=== PATIENT | male | born 1950 | race Caucasian/White ===

== ENCOUNTER 2019-02-11 21:24 | Inpatient (IN) | payer MEDICARE, MEDICAID ==
[~2019-02-11] VITALS: Ht 170.2 cm; Wt 71.7 kg
[2019-02-11] MEDS ORDERED: IPRATROPIUM BROMIDE (0.02%) 0.5MG/2.5ML NEB HHN STA (21:32)
[2019-02-11] MEDS ORDERED: ALBUTEROL (0.083%) 2.5MG/3ML NEB HHN STA (21:32)
[2019-02-11] MEDS ORDERED: METHYLPREDNISOLONE SOD SUCC 125 MG/2 ML VIAL IV STA (21:32)
[2019-02-11] MEDS ORDERED: MAGNESIUM 2 G PREMIX 50 ML IV STA (21:32)
[2019-02-11 21:59] LABS: BASOPHILS % 0.6 % (0.0-2.0); EOSINOPHILS % 6.5 % (0.0-5.0); HEMATOCRIT. 50.3 % (42.0-52.0); HEMOGLOBIN. 16.9 g/dL (14.0-18.0); LYMPHOCYTES % 24.2 % (20.0-50.0); MEAN CORPUSCULAR HEMOGLOBIN 32.9 pg (28.0-32.0); MEAN PLATELET VOLUME 9.1 fl (7.4-10.4); MONOCYTES % 14.4 % (2.0-8.0); NEUTROPHILS % 54.3 % (40.0-76.0); PLATELET 159 x1000/uL (130-400); RED BLOOD CELL COUNT 5.13 mill/uL (4.7-6.1); RED CELL DISTRIBUTION WIDTH 13.7 % (11.6-14.6)
[2019-02-11 22:04] LABS: CHLORIDE 104 mEq/L (98-107)
[2019-02-11 22:05] LABS: INR 1.1; PROTHROMBIN TIME 10.9 sec (9.6-11.0)
[2019-02-11] MEDS ORDERED: GUAIFENESIN 200MG/10ML SUGAR FREE UDC PO PRN (23:15)
[2019-02-11] MEDS ORDERED: ACETAMINOPHEN 325MG TABLET PO PRN (23:15)
[2019-02-11] MEDS ORDERED: DIPHENHYDRAMINE 50MG/ML VIAL IV PRN (23:15)
[2019-02-11] MEDS ORDERED: HYDROCODONE/ACETAMINOPHEN 10/325MG TABLET PO PRN (23:15)
[2019-02-11] MEDS ORDERED: NA PHOS,M-B/NA PHOS,DI-BA ENEMA 118ML PR PRN (23:15)
[2019-02-11] MEDS ORDERED: CLONIDINE 0.1MG TABLET PO PRN (23:15)
[2019-02-11] MEDS ORDERED: MORPHINE SULFATE 2 MG/ML CPJ (NOT FOR IM USE) IV PRN (23:15)
[2019-02-11] MEDS ORDERED: IPRATROPIUM/ALBUTEROL 0.5-3(2.5)MG/3ML NEB HHN PRN (23:15)
[2019-02-11] MEDS ORDERED: MAGNESIUM/ALUMINUM HYDROXIDE/SIMETHICONE 30ML UDC PO PRN (23:15)
[2019-02-11] MEDS ORDERED: ONDANSETRON HCL 4MG/2ML INJ IV PRN (23:15)
[2019-02-11] MEDS ORDERED: LORAZEPAM 2MG/ML CPJ IV PRN (23:15)
[2019-02-12] VITALS (11 sets, daily range): BP systolic 113–141; BP diastolic 60–92
[2019-02-12] MEDS ORDERED: METHYLPREDNISOLONE SOD SUCC 125 MG/2 ML VIAL IV SCH (06:00)
[2019-02-12] MEDS: SODIUM CHLORIDE 0.9% INJ 3ML FLUSH IVF SCH ×3 (06:09→22:00)
[2019-02-12 09:00] LABS: BASOPHILS % 0.1 % (0.0-2.0); EOSINOPHILS % 0.1 % (0.0-5.0); HEMATOCRIT. 47.2 % (42.0-52.0); HEMOGLOBIN. 16.2 g/dL (14.0-18.0); LYMPHOCYTES % 12.5 % (20.0-50.0); MEAN CORPUSCULAR HEMOGLOBIN 33.2 pg (28.0-32.0); MEAN CORPUSCULAR VOLUME 96.5 fL (80.0-94.0); MEAN PLATELET VOLUME 9.4 fl (7.4-10.4); MONOCYTES % 1.8 % (2.0-8.0); NEUTROPHILS % 85.5 % (40.0-76.0); PLATELET 129 x1000/uL (130-400); RED BLOOD CELL COUNT 4.89 mill/uL (4.7-6.1); RED CELL DISTRIBUTION WIDTH 13.5 % (11.6-14.6)
[2019-02-12 09:09] LABS: CHLORIDE 100 mEq/L (98-107)
[2019-02-12 09:18] LABS: LDL CHOLESTEROL 94 mg/dL (5-100)
[2019-02-12 09:20] LABS: CREATINE KINASE 66 IU/L (39-308)
[2019-02-12 09:21] LABS: HDL CHOLESTEROL 56 mg/dL (40-59)
[2019-02-12 09:24] LABS: CREATINE KINASE MB FRACTION 3.5 ng/mL (0.5-3.6)
[2019-02-12] MEDS: ASPIRIN 81MG EC TABLET PO SCH (09:51)
[2019-02-12] MEDS: ENOXAPARIN 40MG/0.4ML SYR SUBCUT SCH (09:51)
[2019-02-12] MEDS ORDERED: PNEUMOCOCCAL 23-VAL P-SAC VAC 0.5 ML IM ONE (12:00)
[2019-02-12] MEDS: IPRATROPIUM/ALBUTEROL 0.5-3(2.5)MG/3ML NEB HHN SCH ×2 (13:30→20:47)
[2019-02-12] MEDS: METHYLPREDNISOLONE SOD SUCC 40 MG/ML VIAL IV SCH ×2 (14:13→23:01)
[2019-02-12 16:58] LABS: CLARITY URINE CLEAR (CLEAR); COLOR URINE YELLOW (YELLOW); KETONES URINE NEGATIVE (NEGATIVE); LEUKOCYTE ESTERASE URINE NEGATIVE (NEGATIVE); NITRITE URINE NEGATIVE (NEGATIVE); OCCULT BLOOD URINE NEGATIVE (NEGATIVE); PH URINE 7.5 (4.5-8.0); PROTEIN URINE NEGATIVE (NEGATIVE); SPECIFIC GRAVITY URINE 1.013 (1.005-1.030)
[2019-02-12 17:09] LABS: *AMPHETAMINES SCREEN URINE NEGATIVE (NEGATIVE); *BARBITURATES SCREEN URINE NEGATIVE (NEGATIVE); *BENZODIAZEPINES SCREEN URINE NEGATIVE (NEGATIVE); *COCAINE SCREEN URINE NEGATIVE (NEGATIVE); METHADONE URINE SCREEN NEGATIVE (NEGATIVE)
[2019-02-12 17:10] LABS: CANNABINOID URINE SCREEN NEGATIVE (NEGATIVE); OPIATES URINE SCREEN NEGATIVE (NEGATIVE); PHENCYCLIDINE URINE SCREEN NEGATIVE (NEGATIVE)
[2019-02-12 18:20] LABS: CREATINE KINASE 65 IU/L (39-308); CREATINE KINASE MB FRACTION 2.9 ng/mL (0.5-3.6)
[2019-02-12] MEDS ORDERED: BRIM5DRO6 EACHEYE (20:05)
[2019-02-12] MEDS ORDERED: LATA2.5D2 EACHEYE (20:05)
[2019-02-12] MEDS ORDERED: DORZ10DR8 EACHEYE (20:05)
[2019-02-12] MEDS: LATANOPROST 0.005% OPHTH DROPS 2.5ML EACHEYE SCH (23:48)
[2019-02-13] VITALS (12 sets, daily range): BP systolic 106–143; BP diastolic 65–92
[2019-02-13] MEDS: IPRATROPIUM/ALBUTEROL 0.5-3(2.5)MG/3ML NEB HHN SCH ×4 (02:25→20:25)
[2019-02-13 05:48] LABS: HEMATOCRIT. 45.7 % (42.0-52.0); HEMOGLOBIN. 15.9 g/dL (14.0-18.0); MEAN CORPUSCULAR HEMOGLOBIN 33.6 pg (28.0-32.0); MEAN CORPUSCULAR VOLUME 96.6 fL (80.0-94.0); MEAN PLATELET VOLUME 9.7 fl (7.4-10.4); PLATELET 144 x1000/uL (130-400); RED BLOOD CELL COUNT 4.73 mill/uL (4.7-6.1); RED CELL DISTRIBUTION WIDTH 13.7 % (11.6-14.6)
[2019-02-13 06:20] LABS: CHLORIDE 97 mEq/L (98-107)
[2019-02-13] MEDS: DOCUSATE SODIUM 100MG CAPSULE PO PRN ×2 (06:29→09:32)
[2019-02-13] MEDS: SODIUM CHLORIDE 0.9% INJ 3ML FLUSH IVF SCH ×3 (06:29→21:54)
[2019-02-13] MEDS: METHYLPREDNISOLONE SOD SUCC 40 MG/ML VIAL IV SCH ×3 (06:29→21:54)
[2019-02-13] MEDS: ASPIRIN 81MG EC TABLET PO SCH (09:32)
[2019-02-13] MEDS: BRIMONIDINE 0.2% OPHTH DROPS 5ML EACHEYE SCH ×3 (09:33→17:10)
[2019-02-13] MEDS: DORZOLAMIDE 2% OPHTH 10 ML BOTTLE EACHEYE SCH ×2 (09:33→17:10)
[2019-02-13] MEDS: ENOXAPARIN 40MG/0.4ML SYR SUBCUT SCH (09:33)
[2019-02-13 13:59] LABS: PLATELET ESTIMATE NORMAL
[2019-02-13] MEDS: LATANOPROST 0.005% OPHTH DROPS 2.5ML EACHEYE SCH (21:54)
[2019-02-14] VITALS (12 sets, daily range): BP systolic 102–150; BP diastolic 57–98
[2019-02-14] MEDS: IPRATROPIUM/ALBUTEROL 0.5-3(2.5)MG/3ML NEB HHN SCH ×4 (01:02→21:02)
[2019-02-14] MEDS: SODIUM CHLORIDE 0.9% INJ 3ML FLUSH IVF SCH ×3 (06:00→21:16)
[2019-02-14] MEDS: METHYLPREDNISOLONE SOD SUCC 40 MG/ML VIAL IV SCH ×3 (06:12→21:16)
[2019-02-14 06:52] LABS: HEMATOCRIT. 45.7 % (42.0-52.0); HEMOGLOBIN. 15.6 g/dL (14.0-18.0); MEAN CORPUSCULAR HEMOGLOBIN 33.1 pg (28.0-32.0); MEAN CORPUSCULAR VOLUME 97.2 fL (80.0-94.0); MEAN PLATELET VOLUME 9.3 fl (7.4-10.4); PLATELET 131 x1000/uL (130-400); RED BLOOD CELL COUNT 4.71 mill/uL (4.7-6.1); RED CELL DISTRIBUTION WIDTH 13.8 % (11.6-14.6)
[2019-02-14 07:20] LABS: CHLORIDE 101 mEq/L (98-107)
[2019-02-14] MEDS: ASPIRIN 81MG EC TABLET PO SCH (09:32)
[2019-02-14] MEDS: ENOXAPARIN 40MG/0.4ML SYR SUBCUT SCH (09:32)
[2019-02-14] MEDS: BRIMONIDINE 0.2% OPHTH DROPS 5ML EACHEYE SCH ×3 (09:32→16:33)
[2019-02-14] MEDS: DORZOLAMIDE 2% OPHTH 10 ML BOTTLE EACHEYE SCH ×2 (09:32→16:33)
[2019-02-14 10:07] LABS: PLATELET ESTIMATE NORMAL
[2019-02-14 13:58] LABS: BG BASE EXCESS 3.3 mmol/L (-2.0-2.0); BG CARBOXYHEMOGLOBIN 0.7 % (0.5-1.5); BG DEOXYHEMOGLOBIN 6.1 % (0.0-5.0); BG FRACTION INSPIRED OXYGEN 21; BG HCO3 ACT 28.3 mmol/L (22.0-26.0); BG METHEMOGLOBIN 0.2 % (0.0-1.5); BG OXYGEN SATURATION 93.8 % (92.0-98.5); BG PH 7.426 (7.350-7.450); BG PO2 65.9 mmHg (75.0-100.0); BG SAMPLE SITE RIGHT RADIAL; BG TOTAL HEMOGLOBIN 16.2 g/dL (12.0-18.0); BG VENT MODE ROOM AIR
[2019-02-14] MEDS ORDERED: METHYLPREDNISOLONE SOD SUCC 40 MG/ML VIAL IV SCH (15:30)
[2019-02-14] MEDS: LATANOPROST 0.005% OPHTH DROPS 2.5ML EACHEYE SCH (21:16)
[2019-02-15] VITALS (12 sets, daily range): BP systolic 101–167; BP diastolic 62–98
[2019-02-15] MEDS: IPRATROPIUM/ALBUTEROL 0.5-3(2.5)MG/3ML NEB HHN SCH ×4 (01:08→20:37)
[2019-02-15] MEDS: SODIUM CHLORIDE 0.9% INJ 3ML FLUSH IVF SCH ×3 (06:13→20:28)
[2019-02-15] MEDS: ASPIRIN 81MG EC TABLET PO SCH (08:29)
[2019-02-15] MEDS: METHYLPREDNISOLONE SOD SUCC 40 MG/ML VIAL IV SCH ×2 (08:30→20:28)
[2019-02-15] MEDS: BRIMONIDINE 0.2% OPHTH DROPS 5ML EACHEYE SCH ×3 (08:41→17:00)
[2019-02-15] MEDS: DORZOLAMIDE 2% OPHTH 10 ML BOTTLE EACHEYE SCH ×2 (08:41→17:00)
[2019-02-15] MEDS: ENOXAPARIN 40MG/0.4ML SYR SUBCUT SCH (09:17)
[2019-02-15] MEDS: LATANOPROST 0.005% OPHTH DROPS 2.5ML EACHEYE SCH (20:27)
[2019-02-16] VITALS (13 sets, daily range): BP systolic 111–140; BP diastolic 64–98
[2019-02-16] MEDS: IPRATROPIUM/ALBUTEROL 0.5-3(2.5)MG/3ML NEB HHN SCH ×4 (00:43→20:17)
[2019-02-16] MEDS: SODIUM CHLORIDE 0.9% INJ 3ML FLUSH IVF SCH ×3 (05:06→20:20)
[2019-02-16] MEDS: METHYLPREDNISOLONE SOD SUCC 40 MG/ML VIAL IV SCH ×2 (09:55→20:20)
[2019-02-16] MEDS: ASPIRIN 81MG EC TABLET PO SCH (09:55)
[2019-02-16] MEDS: ENOXAPARIN 40MG/0.4ML SYR SUBCUT SCH (09:56)
[2019-02-16] MEDS: BRIMONIDINE 0.2% OPHTH DROPS 5ML EACHEYE SCH ×3 (09:56→17:24)
[2019-02-16] MEDS: DORZOLAMIDE 2% OPHTH 10 ML BOTTLE EACHEYE SCH ×2 (09:56→17:24)
[2019-02-16] MEDS: LATANOPROST 0.005% OPHTH DROPS 2.5ML EACHEYE SCH (20:20)
== END 2019-02-17 01:53 | disposition home or self-care (01) | DRG 189 ==
LOC: ER 21:24 → 5EST 22:44 → EDBEDREQTM 22:46 → EDBEDREQSVC 22:46 → EDBEDREQ 22:46 → ENRESERV 02-12 01:12
PROVIDERS: ADMIT Internal Medicine; ATTEND Internal Medicine
PROC: 5A09357 Assistance with Respiratory Ventilation, Less than 24 Consecutive Hours, Continuous Positive Airway Pressure (ICD-10-PCS; principal; 2019-02-11)
DX: J96.01 Acute respiratory failure with hypoxia (principal); J44.1 Chronic obstructive pulmonary disease with (acute) exacerbation; B19.10 Unspecified viral hepatitis B without hepatic coma; I10 Essential (primary) hypertension; F43.10 Post-traumatic stress disorder, unspecified; Z87.891 Personal history of nicotine dependence; Z82.49 Family history of ischemic heart disease and other diseases of the circulatory system; Z85.828 Personal history of other malignant neoplasm of skin
CPT/HCPCS: 36415; 36600; 71045; 80048; 80061; 80305; 81003; 82375; 82550; 82553; 82805; 83880; 84484; 93005; 94640; 94644; 94660; 97162; 97166; 99291; J1650; J2920; J2930; J3475; J7611; J7620

== ENCOUNTER 2019-05-17 08:30 | Inpatient (IN) | payer MEDICARE, MEDICAID ==
[~2019-05-17] VITALS: Ht 172.7 cm; Wt 64.4 kg
[~2019-05-17 08:30] MED LIST: BRIM5DRO6 EACHEYE; DORZ10DR8 EACHEYE; LATA2.5D2 EACHEYE
[2019-05-17] MEDS ORDERED: ALBUTEROL (0.083%) 2.5MG/3ML NEB HHN STA (08:55)
[2019-05-17] MEDS ORDERED: MAGNESIUM 2 G PREMIX 50 ML IV STA (08:55)
[2019-05-17] MEDS ORDERED: METHYLPREDNISOLONE SOD SUCC 125 MG/2 ML VIAL IV STA (08:55)
[2019-05-17] MEDS ORDERED: IPRATROPIUM BROMIDE (0.02%) 0.5MG/2.5ML NEB HHN STA (08:55)
[2019-05-17] MEDS ORDERED: AZITHROMYCIN 500 MG in DEXT 5% WATER 250 ML IV SCH (09:00)
[2019-05-17 09:16] LABS: HEMATOCRIT. 43.2 % (42.0-52.0); HEMOGLOBIN. 14.4 g/dL (14.0-18.0); MEAN CORPUSCULAR HEMOGLOBIN 33.1 pg (28.0-32.0); MEAN CORPUSCULAR VOLUME 99.1 fL (80.0-94.0); MEAN PLATELET VOLUME 9.8 fl (7.4-10.4); PLATELET 117 x1000/uL (130-400); RED BLOOD CELL COUNT 4.36 mill/uL (4.7-6.1)
[2019-05-17 09:22] LABS: CHLORIDE 108 mEq/L (98-107)
[2019-05-17 09:41] LABS: PLATELET ESTIMATE SLIGHTLY DECREASED
[2019-05-17] MEDS ORDERED: ASPIRIN 325MG EC TABLET PO ONE (11:30)
[2019-05-17] MEDS ORDERED: DOCUSATE SODIUM 100MG CAPSULE PO PRN (12:45)
[2019-05-17] MEDS ORDERED: ACETAMINOPHEN 325MG TABLET PO PRN (12:45)
[2019-05-17] MEDS ORDERED: NITROGLYCERIN 0.4MG TABLET SL SL PRN (12:45)
[2019-05-17] MEDS ORDERED: ZOLPIDEM TARTRATE 5MG TABLET PO PRN (12:45)
[2019-05-17] MEDS ORDERED: MORPHINE SULFATE 2 MG/ML CPJ (NOT FOR IM USE) IV PRN (12:45)
[2019-05-17] MEDS ORDERED: GUAIFENESIN 200MG/10ML SUGAR FREE UDC PO PRN (12:45)
[2019-05-17] MEDS ORDERED: TRAMADOL 50MG TABLET PO PRN (12:45)
[2019-05-17] MEDS ORDERED: IPRATROPIUM/ALBUTEROL 0.5-3(2.5)MG/3ML NEB NEB PRN (12:45)
[2019-05-17] MEDS ORDERED: ONDANSETRON HCL 4MG/2ML INJ IV PRN (12:45)
[2019-05-17] MEDS ORDERED: LORAZEPAM 0.5MG TABLET PO PRN (12:45)
[2019-05-17] MEDS ORDERED: CLONIDINE 0.1MG TABLET PO PRN (12:45)
[2019-05-17] MEDS ORDERED: MAGNESIUM/ALUMINUM HYDROXIDE/SIMETHICONE 30ML UDC PO PRN (12:45)
[2019-05-17 13:41] VITALS: BP 106/46
[2019-05-17] MEDS ORDERED: ALBU18HF2 IH (14:09)
[2019-05-17 14:29] LABS: ETHANOL BLOOD < 10 mg/dL
[2019-05-17 14:32] LABS: LDL CHOLESTEROL 79 mg/dL (5-100)
[2019-05-17 14:34] LABS: HDL CHOLESTEROL 44 mg/dL (40-59)
[2019-05-17 15:32] LABS: FOLIC ACID (FOLATE) SERUM 19.5 ng/mL (>5.38)
[2019-05-17 15:43] LABS: INR 1.1; PROTHROMBIN TIME 11.3 sec (9.6-11.0)
[2019-05-17 15:58] LABS: CREATINE KINASE MB FRACTION 2.2 ng/mL (0.5-3.6)
[2019-05-17 16:00] VITALS: BP 112/63
[2019-05-17] MEDS: CEFTRIAXONE 1 G PREMIX 50 ML IV SCH (17:01)
[2019-05-17] MEDS: FUROSEMIDE 40MG/4ML VIAL IVP SCH (17:02)
[2019-05-17] MEDS: METHYLPREDNISOLONE SOD SUCC 125 MG/2 ML VIAL IV SCH ×2 (17:13→21:57)
[2019-05-17] MEDS: LEVOFLOXACIN 500MG PREMIX 100 ML IV SCH (17:15)
[2019-05-17 20:00] VITALS: BP 93/66
[2019-05-17 20:23] LABS: *AMPHETAMINES SCREEN URINE NEGATIVE (NEGATIVE); *BARBITURATES SCREEN URINE NEGATIVE (NEGATIVE); *BENZODIAZEPINES SCREEN URINE NEGATIVE (NEGATIVE); *COCAINE SCREEN URINE NEGATIVE (NEGATIVE)
[2019-05-17 20:24] LABS: CANNABINOID URINE SCREEN NEGATIVE (NEGATIVE); METHADONE URINE SCREEN NEGATIVE (NEGATIVE); OPIATES URINE SCREEN NEGATIVE (NEGATIVE); PHENCYCLIDINE URINE SCREEN NEGATIVE (NEGATIVE)
[2019-05-17] MEDS: IPRATROPIUM/ALBUTEROL 0.5-3(2.5)MG/3ML NEB HHN SCH (20:46)
[2019-05-17] MEDS: FAMOTIDINE 20MG TABLET PO SCH (21:00)
[2019-05-17] MEDS: SPIRONOLACTONE 25MG TABLET PO SCH (21:56)
[2019-05-17] MEDS: GUAIFENESIN/DM 600MG/30MG ER TAB 12HR PO SCH (21:56)
[2019-05-17] MEDS: ENOXAPARIN 60MG/0.6ML SYR SUBCUT SCH (21:57)
[2019-05-18] VITALS: BP 96/70
[2019-05-18 00:42] LABS: CREATINE KINASE MB FRACTION 2.7 ng/mL (0.5-3.6)
[2019-05-18] MEDS: IPRATROPIUM/ALBUTEROL 0.5-3(2.5)MG/3ML NEB HHN SCH ×5 (01:13→21:21)
[2019-05-18 04:00] VITALS: BP 110/63
[2019-05-18] MEDS: METHYLPREDNISOLONE SOD SUCC 125 MG/2 ML VIAL IV SCH ×3 (06:09→21:32)
[2019-05-18] MEDS: FUROSEMIDE 40MG/4ML VIAL IVP SCH ×2 (06:10→17:23)
[2019-05-18 08:00] VITALS: BP 101/59
[2019-05-18] MEDS: FAMOTIDINE 20MG TABLET PO SCH (09:00)
[2019-05-18] MEDS ORDERED: INFLUENZA VIRUS VACCINE(AFLURIA) 0.5ML SYR IM ONE (09:00)
[2019-05-18] MEDS: ENOXAPARIN 60MG/0.6ML SYR SUBCUT SCH ×2 (09:37→21:33)
[2019-05-18] MEDS: GUAIFENESIN/DM 600MG/30MG ER TAB 12HR PO SCH ×2 (09:37→21:33)
[2019-05-18] MEDS: ASPIRIN 81MG EC TABLET PO SCH (09:37)
[2019-05-18] MEDS: SPIRONOLACTONE 25MG TABLET PO SCH ×2 (09:38→22:14)
[2019-05-18] MEDS: CEFTRIAXONE 1 G PREMIX 50 ML IV SCH (09:58)
[2019-05-18] MEDS ORDERED: AZITHROMYCIN 500 MG in DEXT 5% WATER 250 ML IV SCH (10:00)
[2019-05-18 12:00] VITALS: BP 106/57
[2019-05-18] MEDS: LEVOFLOXACIN 500MG PREMIX 100 ML IV SCH (12:40)
[2019-05-18] MEDS: DORZOLAMIDE 2% OPHTH 10 ML BOTTLE BOTHEYE SCH ×2 (14:27→17:23)
[2019-05-18] MEDS: BRIMONIDINE 0.2% OPHTH DROPS 5ML BOTHEYE SCH ×2 (14:27→21:33)
[2019-05-18 16:00] VITALS: BP 109/63
[2019-05-18] MEDS: LATANOPROST 0.005% OPHTH DROPS 2.5ML BOTHEYE SCH (21:33)
[2019-05-18] MEDS: FAMOTIDINE 40MG TABLET PO SCH (22:13)
[2019-05-19] MEDS: IPRATROPIUM/ALBUTEROL 0.5-3(2.5)MG/3ML NEB HHN SCH ×6 (01:07→21:30)
[2019-05-19] MEDS: FUROSEMIDE 40MG/4ML VIAL IVP SCH ×2 (06:17→17:48)
[2019-05-19] MEDS: METHYLPREDNISOLONE SOD SUCC 125 MG/2 ML VIAL IV SCH (06:17)
[2019-05-19] MEDS: BRIMONIDINE 0.2% OPHTH DROPS 5ML BOTHEYE SCH ×3 (06:17→21:07)
[2019-05-19 08:00] VITALS: BP 102/70
[2019-05-19] MEDS: SPIRONOLACTONE 25MG TABLET PO SCH ×2 (09:00→21:05)
[2019-05-19] MEDS: GUAIFENESIN/DM 600MG/30MG ER TAB 12HR PO SCH ×2 (09:10→21:05)
[2019-05-19] MEDS: FAMOTIDINE 40MG TABLET PO SCH ×2 (09:11→21:06)
[2019-05-19] MEDS: DORZOLAMIDE 2% OPHTH 10 ML BOTTLE BOTHEYE SCH ×2 (09:12→17:49)
[2019-05-19] MEDS: ENOXAPARIN 60MG/0.6ML SYR SUBCUT SCH ×2 (09:12→21:07)
[2019-05-19] MEDS: CEFTRIAXONE 1 G PREMIX 50 ML IV SCH (09:18)
[2019-05-19] MEDS: ASPIRIN 81MG EC TABLET PO SCH (09:19)
[2019-05-19] MEDS: AZITHROMYCIN 500 MG in DEXT 5% WATER 250 ML IV SCH (10:58)
[2019-05-19 12:00] VITALS: BP 115/61
[2019-05-19 16:00] VITALS: BP 108/70
[2019-05-19] MEDS: LEVOFLOXACIN 500MG PREMIX 100 ML IV SCH (17:48)
[2019-05-19] MEDS: PREDNISONE 20MG TABLET PO SCH (17:49)
[2019-05-19 20:00] VITALS: BP 119/70
[2019-05-19] MEDS: LATANOPROST 0.005% OPHTH DROPS 2.5ML BOTHEYE SCH (21:05)
[2019-05-19] MEDS: TRIAMCINOLONE ACETONIDE 0.1% CREAM 15GM TOP SCH (21:07)
[2019-05-20] VITALS: BP 101/49
[2019-05-20] MEDS: IPRATROPIUM/ALBUTEROL 0.5-3(2.5)MG/3ML NEB HHN SCH ×6 (01:20→20:07)
[2019-05-20 04:00] VITALS: BP 104/66
[2019-05-20] MEDS: FUROSEMIDE 40MG/4ML VIAL IVP SCH ×2 (06:33→18:20)
[2019-05-20] MEDS: BRIMONIDINE 0.2% OPHTH DROPS 5ML BOTHEYE SCH ×3 (06:33→23:02)
[2019-05-20 08:00] VITALS: BP 104/67
[2019-05-20] MEDS: SPIRONOLACTONE 25MG TABLET PO SCH ×2 (09:00→23:00)
[2019-05-20] MEDS: FAMOTIDINE 40MG TABLET PO SCH (09:24)
[2019-05-20] MEDS: ASPIRIN 81MG EC TABLET PO SCH (09:24)
[2019-05-20] MEDS: PREDNISONE 20MG TABLET PO SCH ×2 (09:24→18:20)
[2019-05-20] MEDS: CEFTRIAXONE 1 G PREMIX 50 ML IV SCH (09:25)
[2019-05-20] MEDS: ENOXAPARIN 60MG/0.6ML SYR SUBCUT SCH ×2 (09:25→23:01)
[2019-05-20] MEDS: DORZOLAMIDE 2% OPHTH 10 ML BOTTLE BOTHEYE SCH ×2 (09:25→18:21)
[2019-05-20] MEDS: TRIAMCINOLONE ACETONIDE 0.1% CREAM 15GM TOP SCH ×2 (09:25→23:01)
[2019-05-20] MEDS: GUAIFENESIN/DM 600MG/30MG ER TAB 12HR PO SCH ×2 (09:25→23:01)
[2019-05-20] MEDS: AZITHROMYCIN 500 MG in DEXT 5% WATER 250 ML IV SCH (10:44)
[2019-05-20 12:00] VITALS: BP 104/65
[2019-05-20] MEDS: LEVOFLOXACIN 500MG PREMIX 100 ML IV SCH (13:20)
[2019-05-20 16:00] VITALS: BP 102/55
[2019-05-20 20:00] VITALS: BP 121/63
[2019-05-20] MEDS: FAMOTIDINE 20MG TABLET PO SCH (23:01)
[2019-05-20] MEDS: LATANOPROST 0.005% OPHTH DROPS 2.5ML BOTHEYE SCH (23:02)
[2019-05-21] VITALS (7 sets, daily range): BP systolic 104–162; BP diastolic 60–74
[2019-05-21] MEDS: IPRATROPIUM/ALBUTEROL 0.5-3(2.5)MG/3ML NEB HHN SCH ×5 (00:25→15:20)
[2019-05-21] MEDS: FUROSEMIDE 40MG/4ML VIAL IVP SCH ×2 (05:39→18:27)
[2019-05-21] MEDS: BRIMONIDINE 0.2% OPHTH DROPS 5ML BOTHEYE SCH ×2 (05:39→13:41)
[2019-05-21] MEDS: CEFTRIAXONE 1 G PREMIX 50 ML IV SCH (09:06)
[2019-05-21] MEDS: ASPIRIN 81MG EC TABLET PO SCH (09:07)
[2019-05-21] MEDS: PREDNISONE 20MG TABLET PO SCH ×2 (09:07→18:27)
[2019-05-21] MEDS: SPIRONOLACTONE 25MG TABLET PO SCH ×2 (09:07→19:40)
[2019-05-21] MEDS: FAMOTIDINE 20MG TABLET PO SCH ×2 (09:08→19:37)
[2019-05-21] MEDS: ENOXAPARIN 60MG/0.6ML SYR SUBCUT SCH ×2 (09:08→19:40)
[2019-05-21] MEDS: GUAIFENESIN/DM 600MG/30MG ER TAB 12HR PO SCH ×2 (09:08→19:38)
[2019-05-21] MEDS: TRIAMCINOLONE ACETONIDE 0.1% CREAM 15GM TOP SCH (09:18)
[2019-05-21] MEDS: DORZOLAMIDE 2% OPHTH 10 ML BOTTLE BOTHEYE SCH ×2 (09:18→18:27)
[2019-05-21] MEDS: AZITHROMYCIN 500 MG in DEXT 5% WATER 250 ML IV SCH (10:34)
[2019-05-21] MEDS: LEVOFLOXACIN 500MG PREMIX 100 ML IV SCH (13:00)
[2019-05-21] MEDS: LATANOPROST 0.005% OPHTH DROPS 2.5ML BOTHEYE SCH (19:40)
== END 2019-05-21 20:01 | disposition home or self-care (01) | DRG 280 ==
LOC: ER 08:30 → 7WST 12:10 → ENRESERV 12:22 → SUPCPDRO 12:41
PROVIDERS: ADMIT Internal Medicine; ATTEND Internal Medicine
DX: I21.4 Non-ST elevation (NSTEMI) myocardial infarction (principal); J96.01 Acute respiratory failure with hypoxia; J44.1 Chronic obstructive pulmonary disease with (acute) exacerbation; E44.0 Moderate protein-calorie malnutrition; B19.10 Unspecified viral hepatitis B without hepatic coma; I11.0 Hypertensive heart disease with heart failure; I50.9 Heart failure, unspecified; F10.21 Alcohol dependence, in remission; F43.10 Post-traumatic stress disorder, unspecified; Z60.2 Problems related to living alone; Z82.49 Family history of ischemic heart disease and other diseases of the circulatory system; Z85.828 Personal history of other malignant neoplasm of skin; Z87.891 Personal history of nicotine dependence; Z68.21 Body mass index [BMI] 21.0-21.9, adult; Z79.899 Other long term (current) drug therapy; Z71.51 Drug abuse counseling and surveillance of drug abuser
CPT/HCPCS: 36415; 71045; 80061; 80305; 80320; 82550; 82553; 82607; 82746; 83036; 83880; 84484; 90686; 93005; 93306; 93970; 96365; 96366; 96368; 99285; J0456; J0696; J1650; J1940; J1956; J2930; J3475; J7040; J7060; J7512; J7611; J7620; G0480